=== PATIENT | male | born 1955 | race Caucasian/White ===

== ENCOUNTER 2017-03-01 18:28 | Emergency (ER) | payer SELFPAY ==
[~2017-03-01] VITALS: Ht 167.6 cm; Wt 72.6 kg
--- NOTE | 2017-03-01 18:44 | Emergency Room Report ---
History of Present Illness General Chief Complaint: Alcohol Intoxication Source: Patient, EMS Present Illness HPI The patient is brought in by paramedics. Apparently his friend states that he is unable to ambulate. Allegedly there are drugs and alcohol on board. The patient states these are not possible. He's not sure what the problem is. Accucheck 83 in field. Denies CP, dyspnea, cough, trauma, NVD, rashes, headache. Denies SI or HI. Allergies: Coded Allergies: UNABLE TO ASSESS (Unverified , 03/01/17) Patient History Past Medical History: see triage record Social History: Reports: smoking, alcohol use, drug use Social History Narrative on the streets Reviewed Nursing Documentation: PMH: Agreed, PSxH: Agreed Nursing Documentation-PMH Past Medical History Deferred: Pt Cognitively Impaired Review of Systems All Other Systems: negative except mentioned in HPI Physical Exam Vital Signs Date Time Temp Pulse Resp B/P (MAP) Pulse Ox O2 Delivery O2 Flow Rate FiO2 03/01/17 18:27 97.7 110 18 140/98 98 Room Air Sp02 EP Interpretation: reviewed, normal General Appearance: no apparent distress, non-toxic, other - dishevelled, alcohol on breath Head: normocephalic Eyes: bilateral eye PERRL, bilateral eye Scleral Injection ENT: moist mucus membranes Neck: full range of motion, supple Respiratory: lungs clear, normal breath sounds Cardiovascular #1: regular rate, rhythm Cardiovascular #2: 2+ radial (R) Gastrointestinal: normal inspection, normal bowel sounds, non tender, no mass, non-distended Musculoskeletal: back normal, gait/station normal, normal range of motion Neurologic: alert, oriented x3, motor strength/tone normal, other - slurred speech Psychiatric: no suicidal/homicidal ideation, other - denies problems Skin: warm/dry, other - plethoric, scab on nose, slightly dishevelled Medical Decision Making Diagnostic Impression: Primary Impression: Acute alcoholic intoxication Qualified Codes: F10.929 - Alcohol use, unspecified with intoxication, unspecified Additional Impression: AMA ER Course The patient has weakness and unsteady gait. Differential includes acute alcohol intoxication, other drug ingestion, electrolyte abnormality, a brain bleed amongst others. The patient needs evaluation with CT, chest x-ray, EKG and labs. The patient will receive IV hydration, thiamine. The patient was awaiting a gurney in the emergency department. He asked paramedics to unload him from the gurney. He was able to ambulate. He walked out of the ED. I spoke with him as he was outside of the driveway in the emergency department. I admonished him not to drink and to return for evaluation. He asked me "why "? (He lacks insight.) Ambulates without any difficulty. I told him that he was at risk of by leaving without evaluation. He stated he didn't believe me. He insisted on leaving. Last Vital Signs Date Time Temp Pulse Resp B/P (MAP) Pulse Ox O2 Delivery O2 Flow Rate FiO2 03/01/17 18:27 97.7 110 18 140/98 98 Room Air Status: improved Disposition: AGAINST MEDICAL ADVICE Condition: Stable Андрей Ribeiro M.D. Mar 01, 2017 18:44
[2017-03-01] MEDS ORDERED: Thiamine HCl 100 MG in D5W 55 ML IVPB SCH (18:45)
[2017-03-01 19:20] VITALS: BP 140/98
== END 2017-03-01 19:20 | disposition home or self-care (01) ==
LOC: EDBD 18:28 → EMR 18:45
DX: F10.129 Alcohol abuse with intoxication, unspecified (principal); F17.200 Nicotine dependence, unspecified, uncomplicated; R53.1 Weakness; R26.81 Unsteadiness on feet
CPT/HCPCS: 99283